=== PATIENT | female | born 1955 | race Caucasian/White ===

== ENCOUNTER 2017-03-25 18:21 | Emergency (ER) | payer OTHER ==
[2017-03-25 18:38] VITALS: BP 151/77
--- NOTE | 2017-03-25 18:54 | UC ---
Lower Extremity/Ankle HPI - HPI Summary HPI Summary: 2 day history of right foot swelling. She became aware 2 days ago of a sore area on the medial aspect of the right great toe, thinks that she might have punctured the skin although removed no foreing body from it. Has been soaking her foot in epsom salts, but aware of increasing redness in the foot and distal leg. Swollen and red, not very painful except at the site of the puncture wound. Does not see physicians. jail smoker with almost 30 pack year history. Blood pressure is elevated today, and she is considerably overweight. Says has screened negative for diabetes in the past, but that was some years ago. Because of cellulitis moving relatively rapidly, fingerstick glucose done today. Normal fingerstick reading of 78. States that she does not see physicians because she cannot afford to. - History of Current Complaint Chief Complaint: UCLowerExtremity Stated Complaint: SWOLLEN RIGHT FOOT Time Seen by Provider: 03/25/17 18:41 Hx Obtained From: Patient ?: No Onset/Duration: Gradual Onset, Lasting Days - 3 Severity Initially: Mild Severity Currently: Moderate Aggravating Factor(s): Standing, Ambulation Alleviating Factor(s): Rest, Other - Epsom salt soaks. - Risk Factors Gout Risk Factors: Negative DVT Risk Factors: Smoking Septic Arthritis Risk Factor: Negative - Allergies/Home Medications Allergies/Adverse Reactions: Allergies Allergy/AdvReac Type Severity Reaction Status Date / Time Penicillins [PCN] Allergy Unknown Verified 03/25/17 18:38 Reaction Details bee Allergy Unknown Uncoded 03/25/17 18:38 Reaction Details pink and hernandez capsule Allergy Unknown Uncoded 03/25/17 18:38 Reaction Details pork Allergy Unknown Uncoded 03/25/17 18:38 Reaction Details PMH/Surg Hx/FS Hx/Imm Hx - Additional Past Medical History Additional PMH: obese, nicotine dependent. Previously Healthy: Yes - Surgical History Surgical History: None - Family History Known Family History: Positive: Cardiac Disease - father had [place], of old age., Other - mother has had a stroke, living in a correction. - Social History Occupation: Disabled Lives: With Family Alcohol Use: Rare Substance Use Type: None Smoking Status (MU): Heavy Every Day Tobacco Smoker Amount Used/How Often: 1/2 ppd Review of Systems Constitutional: Negative Skin: Negative Eyes: Negative ENT: Negative Respiratory: Other - denies any symptoms related to intermission coordinator smoking such as chronic cough or breathlessness. Cardiovascular: Other - densies a hx of hypertension. Gastrointestinal: Negative Genitourinary: Negative Motor: Negative Neurovascular: Negative Musculoskeletal: Negative Neurological: Negative Psychological: Negative All Other Systems Reviewed And Are Negative: Yes Physical Exam Triage Information Reviewed: Yes Appearance: Obese, Other: - looks chronically unwell, with periorbital puffiness. Vital Signs: Initial Vital Signs Temp 97.8 F 03/25/17 18:33 Pulse 97 03/25/17 18:33 Resp 16 03/25/17 18:33 BP 151/77 03/25/17 18:33 Pulse Ox 98 03/25/17 18:33 Vital Signs Reviewed: Yes Eyes: Positive: Conjunctiva Inflamed, Other: - kemal-orbital swelling ENT: Positive: Pharynx normal Dental: Positive: Other: - edentulous Neck: Positive: Supple, Nontender, No Lymphadenopathy Respiratory: Positive: Lungs clear, Normal breath sounds Cardiovascular: Positive: RRR, No Murmur Neurological: Positive: Alert, Muscle Tone Normal Skin: Positive: Other - right foot with diffuse swelling and erythema, extending up to about 13 cm above the ankle joint, anteriorly only. Medial great toe with a puncture wound, probed lightly and do not see a track suggestive of FB. Nails are thickened with callus on feet. Lower Extremity Course/Dx - Course Course Of Treatment: keflex for treatment of cellulitis - Differential Dx/Diagnosis Differential Diagnosis/HQI/PQRI: Cellulitis, Infection, Osteomyelitis Provider Diagnoses: cellulitis right foot post skin injury. Elevated blood pressure Discharge - Discharge Plan Condition: Stable Disposition: HOME Prescriptions: Cephalexin CAP* [Keflex 500 CAP*] 500 mg PO QID #40 cap Referrals: Violeta Mittal MD [Medical Doctor] - Ephraim WALKER,Enedina Nixon [Primary Care Provider] - Additional Instructions: As discussed you must have a follow up in 2 days to ensure that this is improving, and also for a recheck of your blood pressure, which is elevated today. If you begin to develop hives, STOP the antibiotic immediately and return for reassessment, or see your primary care doctor. Continue soaking the foot in hot water and epsom salts for 15 minutes 3 or 4 times per day. Please keep your foot elevated as much as possible for the next 2 days.
[2017-03-25] MEDS ORDERED: Cephalexin CAP* 500 MG PO ONE (19:14)
== END 2017-03-25 19:33 | disposition home or self-care (01) ==
LOC: UCCORT 18:21
DX: L03.115 Cellulitis of right lower limb (principal); R03.0 Elevated blood-pressure reading, without diagnosis of hypertension; F17.210 Nicotine dependence, cigarettes, uncomplicated; Z91.030 Bee allergy status; Z88.0 Allergy status to penicillin; Z91.018 Allergy to other foods
CPT/HCPCS: 99202; A9270-GY; G0463